=== PATIENT | male | born 1965 | race Caucasian/White ===

== ENCOUNTER 2016-10-04 08:59 | Outpatient (CLI) | payer OTHER ==
--- NOTE | 2016-10-04 10:52 | DIAGNOSTIC IMAGING REPORT ---
PROCEDURE: CT ABD/PELVIS WITH CONTRAST CLINICAL INDICATION: Left lower quadrant pain x 5 days. TECHNIQUE: 125 ml of Isovue 300 were injected intravenously and axial images were obtained of the entire abdomen and pelvis with sagittal and coronal reformations. COMPARISON: CT abdomen/pelvis 07/30/2015. FINDINGS: ABDOMEN: Lung base are clear. Heart size is normal. Liver, gallbladder, pancreas, spleen and adrenal glands are normal. Small bilateral renal cysts. Mild atherosclerosis of the aorta. Nonspecific bowel gas pattern. PELVIS: Normal appendix. No diverticulosis. Normal prostate. Normal bladder with a prominent urachal sinus, unchanged. No pelvic mass, inflammatory changes or free fluid. T11 and T12 Schmorl's nodes and mild chronic compression fractures. Moderate L12-5 degenerative changes. IMPRESSION: 1. No acute left lower quadrant process All CT scans at this facility use dose modulation, iterative reconstruction, and/or weight-based dosing when appropriate to reduce radiation dose to as low as reasonably achievable.
== END 2016-10-04 23:00 ==
LOC: LAB SRH 08:59 → CT SRH 08:59
DX: R10.32 Left lower quadrant pain (principal)
CPT/HCPCS: 90074; 91631; 92560